=== PATIENT | female | born 1960 | race American Indian/Alaskan Native ===

== ENCOUNTER 2018-01-30 15:09 | Emergency (ER) | payer SELFPAY ==
[2018-01-30 15:51] LABS: Bilirubin,Urine NEG (Negative); Blood,Urine NEG (Negative); Color,Urine Yellow (Yellow); Mucus,Urine FEW /HPF; Protein,Urine <15 mg/dL mg/dL (Negative); RBC,Urine < 1.0 /HPF (0.0-6.0); Urobilinogen,Urine < 2.0 mg/dL (<2.0); WBC,Urine < 1.0 /HPF (0.0-6.0)
[2018-01-30] MEDS ORDERED: TORADOL IM ONE (16:12)
--- NOTE | 2018-01-30 16:12 | Emergency Department Report ---
ED Back Pain/Injury HPI - General Chief Complaint: Back Pain/Injury Stated Complaint: LOW BACK PAIN Time Seen by Provider: 01/30/18 16:11 Source: patient Limitations: No Limitations - History of Present Illness Initial Comments: This is a 57-year-old female nontoxic, well nourished in appearance, no acute signs of distress presents to the ED with c/o of acute on chronic lower back pain. Patient stated that the past 2 days she was moving and lifting water bottles and developed this pain. Patient states that pain radiates through to his left lower extremity. Patient denies any trauma. Denies any bladder or bowel instability. Denies any fever, chills, nausea, vomiting, headache, stiff neck, abdominal pain, chest pain or shortness of breath. Patient denies any numbness or tingling. Patient states allergies to Vicodin and neomycin. Past medical history includes hypertension. MD Complaint: back pain -: days(s) (2) Similar Symptoms Previously: Yes Radiation: left leg Severity: mild Severity scale (0 -10): 8 Quality: aching Consistency: constant Improves With: immobilization, supine, sitting upright Worsens With: movement, walking Context: while lifting, turning/twisting Associated Symptoms: denies other symptoms. denies: confusion, weakness, chest pain, numbness, difficulty walking, cough, difficulty urinating, diaphoresis, incontinence, fever/chills, constipation, headaches, abdominal pain, loss of appetite, malaise, nausea/vomiting, rash, seizure, shortness of breath, syncope - Related Data Previous Rx's Medication Instructions Recorded Last Taken Type Amoxicillin [Amoxicillin TAB] 875 mg PO BID #20 tablet 11/30/16 Unknown Rx Ibuprofen [Motrin 800 MG tab] 800 mg PO Q8HR PRN #30 tablet 11/30/16 Unknown Rx Cyclobenzaprine [Flexeril] 10 mg PO QHS PRN #7 tablet 01/30/18 Unknown Rx Ibuprofen [Motrin] 600 mg PO Q8H PRN #30 tablet 01/30/18 Unknown Rx Allergies Allergy/AdvReac Type Severity Reaction Status Date / Time acetaminophen [From Vicodin] AdvReac Vomiting Verified 11/30/16 15:43 hydrocodone bitartrate AdvReac Vomiting Verified 11/30/16 15:43 [From Vicodin] neomycin [Neomycin] AdvReac Itching Verified 11/30/16 15:43 ED Review of Systems ROS: Stated complaint: LOW BACK PAIN Other details as noted in HPI Constitutional: denies: chills, fever Eyes: denies: eye pain, eye discharge, vision change ENT: denies: ear pain, throat pain Respiratory: denies: cough, shortness of breath, wheezing Cardiovascular: denies: chest pain, palpitations Endocrine: no symptoms reported Gastrointestinal: denies: abdominal pain, nausea, diarrhea Genitourinary: denies: urgency, dysuria, discharge Musculoskeletal: back pain. denies: joint swelling, arthralgia Skin: denies: rash, lesions Neurological: denies: headache, weakness, paresthesias Psychiatric: denies: anxiety, depression Hematological/Lymphatic: denies: easy bleeding, easy bruising ED Past Medical Hx - Past Medical History Hx Hypertension: Yes Additional medical history: hx bladder infections, heavy bleeding w/ cycles, anemia on Ferrous sulfate - Surgical History Hx Breast Surgery: Yes (CYST REMOVED RIGHT BREAST) Additional Surgical History: OVARIAN CYST REMOVED - Social History Smoking Status: Never Smoker Substance Use Type: None - Medications Home Medications: Home Medications Medication Instructions Recorded Confirmed Last Taken Type Amoxicillin [Amoxicillin TAB] 875 mg PO BID #20 tablet 11/30/16 Unknown Rx Ibuprofen [Motrin 800 MG tab] 800 mg PO Q8HR PRN #30 tablet 11/30/16 Unknown Rx Cyclobenzaprine [Flexeril] 10 mg PO QHS PRN #7 tablet 01/30/18 Unknown Rx Ibuprofen [Motrin] 600 mg PO Q8H PRN #30 tablet 01/30/18 Unknown Rx ED Physical Exam - General Limitations: No Limitations General appearance: alert, in no apparent distress - Head Head exam: Present: atraumatic, normocephalic - Eye Eye exam: Present: normal appearance Pupils: Present: normal accommodation - ENT ENT exam: Present: normal exam, mucous membranes moist - Neck Neck exam: Present: normal inspection, full ROM. Absent: tenderness, meningismus, lymphadenopathy - Respiratory Respiratory exam: Present: normal lung sounds bilaterally. Absent: respiratory distress, wheezes, rales, rhonchi, stridor, chest wall tenderness, accessory muscle use, decreased breath sounds, prolonged expiratory - Cardiovascular Cardiovascular Exam: Present: regular rate, normal rhythm, normal heart sounds. Absent: tachycardia, irregular rhythm, systolic murmur, diastolic murmur, rubs , gallop - GI/Abdominal GI/Abdominal exam: Present: soft, normal bowel sounds. Absent: distended, tenderness, guarding, rebound, rigid, diminished bowel sounds, bruit - Rectal Rectal exam: Present: deferred - Extremities Exam Extremities exam: Present: normal inspection, full ROM, normal capillary refill - Back Exam Back exam: Present: normal inspection, full ROM, paraspinal tenderness (left paralumbar region). Absent: tenderness, CVA tenderness (R), CVA tenderness (L) , muscle spasm, vertebral tenderness, rash noted - Expanded Back Exam Expanded Back exam: Absent: saddle anesthesia Back exam: Negative Straight Leg Raising: Left, Right - Neurological Exam Neurological exam: Present: alert, oriented X3, normal gait - Psychiatric Psychiatric exam: Present: normal affect, normal mood - Skin Skin exam: Present: warm, dry, intact, normal color. Absent: rash ED Course Vital Signs 01/30/18 01/30/18 15:14 16:20 Temperature 97.9 F Pulse Rate 58 L Respiratory 16 18 Rate Blood Pressure 143/67 O2 Sat by Pulse 97 Oximetry - Reevaluation(s) Reevaluation #1: 01/30/18 17:50 Patient is speaking in full sentences with no signs of distress noted. ED Medical Decision Making - Medical Decision Making This is a 57-year-old female that presents with low back strain. Patient is stable was examined by me. There is no spinal tenderness. There is no cauda equina syndrome during examination. No bladder or bowel instability. Patient received Toradol 60 mg IM in the ED which preceded his symptoms has resolved and subsided. Patient is discharged with muscle relaxant and Motrin. Patient was instructed not to operate any machinery while taking muscle relaxant as they cause her drowsiness. Patient was referred to Follow-up with a primary care doctor in 3-5 days or if symptoms worsen and continue return to emergency room as soon as possible. At time of discharge, the patient does not seem toxic or ill in appearance. No acute signs of distress noted. Patient agrees to discharge treatment plan of care. No further questions noted by the patient. This chart is dictated with using [employer] Critical care attestation.: If time is entered above; I have spent that time in minutes in the direct care of this critically ill patient, excluding procedure time. ED Disposition Clinical Impression: Low back strain Qualifiers: Encounter type: initial encounter Qualified Code(s): S39.012A - Strain of muscle, fascia and tendon of lower back, initial encounter Disposition: TO HOME OR SELFCARE Is pt being admited?: No Does the pt Need Aspirin: No Condition: Stable Instructions: Low Back Strain (ED), Cyclobenzaprine (By mouth), Ibuprofen (By mouth) Additional Instructions: Follow-up with your primary care doctor in 3-5 days or if symptoms worsen such as bladder or bowel stability, chest pain, short of breath, numbness or tingling sensation in extremities, headache, dizziness, visual changes, nausea vomiting, or abdominal pain, return back to emergency room as was possible. Take ibuprofen and Flexeril as prescribed. Do not operate heavy machinery while taking Flexeril due to sedation Prescriptions: Cyclobenzaprine [Flexeril] 10 mg PO QHS PRN #7 tablet PRN Reason: Muscle Spasm Ibuprofen [Motrin] 600 mg PO Q8H PRN #30 tablet PRN Reason: Pain Referrals: PRIMARY MD LAURYN [Primary Care Provider] - 3-5 Days KENY MESA MD [Staff Physician] - 3-5 Days [facility] [Outside] - 3-5 Days [facility] [Outside] - 3-5 Days Forms: Work/School Release Form(ED)
[2018-01-30 18:24] VITALS: BP 146/68
== END 2018-01-30 18:25 | disposition home or self-care (01) ==
LOC: ED 15:09
DX: S39.012A Strain of muscle, fascia and tendon of lower back, initial encounter (principal); I10 Essential (primary) hypertension; Z88.6 Allergy status to analgesic agent; Z88.1 Allergy status to other antibiotic agents; X58.XXXA Exposure to other specified factors, initial encounter; Y93.89 Activity, other specified; Y92.89 Other specified places as the place of occurrence of the external cause; Y99.8 Other external cause status
CPT/HCPCS: 81001; 96372; 99283; J1885

== ENCOUNTER 2019-11-09 01:56 | Emergency (ER) | payer SELFPAY ==
--- NOTE | 2019-11-09 02:09 | Emergency Department Report ---
Chief Complaint: Nosebleed Stated Complaint: MIGRAINE,COUGHING UP BLOOD - HPI History of Present Illness: The pt is a 59 y/o F p/w a cc of WADE, hemoptysis and epistaxis. Pt denies preceeding trauma. Pt states she takes an aspirin occ but no other blood thinners - Exam Vital Signs: Vital Signs 11/09/19 02:01 Temperature 97.7 F Pulse Rate 71 Respiratory 18 Rate Blood Pressure 157/80 O2 Sat by Pulse 99 Oximetry MSE screening note: Focused history and physical exam performed. Due to findings the following was ordered: cbc, bmp, pt/ptt/inr CT Head cxr ED Disposition for MSE Condition: Stable
[2019-11-09 02:38] LABS: Hematocrit 38.5 % (30.3-42.9); Hemoglobin 13.4 gm/dl (10.1-14.3); Mean Corpuscular HGB Conc 35 % (30-34); Mean Corpuscular Volume 93 fl (79-97); Platelet Count 277 K/mm3 (140-440); Red Blood Count 4.15 M/mm3 (3.65-5.03); Red Cell Distribution Width 13.2 % (13.2-15.2)
--- NOTE | 2019-11-09 02:38 | Cat Scan Report ---
CT HEAD WITHOUT CONTRAST INDICATION : Headache. Nosebleed. TECHNIQUE: Axial, coronal and sagittal CT imaging was performed from the skull apex through the skul l base without contrast. All CT scans at this location are performed using CT dose reduction for ALA RA by means of automated exposure control. COMPARISON: None available. FINDINGS: PARENCHYMA: No mass, midline shift, hemorrhage, extraaxial collection or acute territorial infarctio n. There is mild generalized atrophy. VENTRICLES: Symmetric and normal in size. SOFT TISSUES: No significant abnormality of the included soft tissues/orbits. BONES: No acute osseous abnormality. SINUSES: No significant abnormality. ADDITIONAL FINDINGS: None. IMPRESSION: No acute intracranial abnormality. Signer Name: Roe Diaz MD Signed: 11/09/2019 2:34 AM Workstation Name: [id number]
[2019-11-09 02:47] LABS: INR 0.98 (0.87-1.13)
--- NOTE | 2019-11-09 02:49 | XRay Report ---
CHEST 2 VIEWS INDICATION / CLINICAL INFORMATION: hemoptysis. COMPARISON: None available. FINDINGS: SUPPORT DEVICES: None. HEART / MEDIASTINUM: No significant abnormality. LUNGS / PLEURA: No significant pulmonary or pleural abnormality. No pneumothorax. ADDITIONAL FINDINGS: No significant additional findings. IMPRESSION: 1. No acute abnormality of the chest. Signer Name: Roe Diaz MD Signed: 11/09/2019 2:45 AM Workstation Name: [id number]
[2019-11-09 02:57] LABS: BUN/Creatinine Ratio 15; Blood Urea Nitrogen 12 mg/dL (7-17); Calcium 9.8 mg/dL (8.4-10.2); Hemolysis Index 6
[2019-11-09 03:37] LABS: RBC Morphology Normal; Total Cells Counted 100
[2019-11-09] MEDS ORDERED: ONDANSETRON 4 MG ODT TAB PO ONE (04:28)
[2019-11-09] MEDS ORDERED: BUTALB/ACETAMINOPHEN/CAFFEINE TAB PO ONE (04:28)
--- NOTE | 2019-11-09 04:30 | Emergency Department Report ---
- General Chief Complaint: Nosebleed Stated Complaint: MIGRAINE,COUGHING UP BLOOD Source: patient Mode of arrival: Ambulatory Limitations: No Limitations - History of Present Illness Initial Comments: Patient is a 59-year-old -Filipino female with a history of chronic headaches and sinus infection, hypertension presents to the ED record and of acute onset persistent nasal and sinus congestion, persistent dry cough, frontal sinus pressure and headache for the last 1 week, worse in the last 2 days. Patient also complains of acute onset left-sided epistaxis is present on arrival in the ED which has since resolved. Patient denies dizziness, syncope, chest pain, shortness of breath, fever, chills, sore throat, dizziness, palpitation, neck pain or change in vision. Patient states that she has been taking Fiorinal with codeine for pain at home up to about 3 weeks ago but ran out of the medic ation. Patient states that tonight while at home she was having persistent nasal and sinus congestion and blew her nose and thereafter developed acute onset left-sided epistaxis. MD Complaint: cough, rhinorrhea, nasal congestion, sinus pain, other (nosebleed; frontal sinus pressure and headache) -: Sudden, hour(s) (4), week(s) (3) Severity: moderate Severity scale (0 -10): 4 Quality: dull, aching Consistency: constant, intermittent Improves With: nothing Worsens With: nothing Associated Symptoms: denies other symptoms, headache, rhinorrhea, nasal congestion. denies: fever, myalgias, diaphoresis, stiff neck, cough, chest pain, shortness of breath, abdominal pain, nausea, vomiting, diarrhea, weight loss, epistaxis, hoarseness, ear pain Treatments Prior to Arrival: none - Related Data Previous Rx's Medication Instructions Recorded Last Taken Type Amoxicillin [Amoxicillin TAB] 875 mg PO BID #20 tablet 11/30/16 Unknown Rx Ibuprofen [Motrin 800 MG tab] 800 mg PO Q8HR PRN #30 tablet 11/30/16 Unknown Rx Cyclobenzaprine [Flexeril] 10 mg PO QHS PRN #7 tablet 01/30/18 Unknown Rx Ibuprofen [Motrin] 600 mg PO Q8H PRN #30 tablet 01/30/18 Unknown Rx Amoxicillin/Potassium Clav 1 each PO Q12H #20 tablet 11/09/19 Unknown Rx [Augmentin 875-125 Tablet] Codeine/Butalbital/ASA/Caffein 1 - 2 each PO Q6H PRN #15 capsule 11/09/19 Unknown Rx [Fiorinal with Codeine #3 Cap] Ondansetron [Zofran Odt] 4 mg PO Q6HR PRN #12 tab.rapdis 11/09/19 Unknown Rx Allergies Allergy/AdvReac Type Severity Reaction Status Date / Time acetaminophen [From Vicodin] AdvReac Vomiting Verified 11/30/16 15:43 hydrocodone bitartrate AdvReac Vomiting Verified 11/30/16 15:43 [From Vicodin] neomycin [Neomycin] AdvReac Itching Verified 11/30/16 15:43 ED Review of Systems ROS: Stated complaint: MIGRAINE,COUGHING UP BLOOD Other details as noted in HPI Comment: All other systems reviewed and negative Constitutional: denies: chills, fever Eyes: denies: eye pain, eye discharge, vision change ENT: epistaxis (resolved), congestion, other (frontal sinus pressure and headache). denies: ear pain, throat pain Respiratory: cough. denies: shortness of breath, wheezing Cardiovascular: denies: chest pain, palpitations, paroxysmal nocturnal dyspnea Endocrine: no symptoms reported Gastrointestinal: denies: abdominal pain, nausea, diarrhea Genitourinary: denies: urgency, dysuria, discharge Musculoskeletal: denies: back pain, joint swelling, arthralgia Skin: denies: rash, lesions Neurological: headache (frontal ). denies: weakness, paresthesias Psychiatric: denies: anxiety, depression Hematological/Lymphatic: denies: easy bleeding, easy bruising ED Past Medical Hx - Past Medical History Previous Medical History?: Yes Hx Hypertension: Yes Additional medical history: hx bladder infections, heavy bleeding w/ cycles, anemia on Ferrous sulfate - Surgical History Past Surgical History?: Yes Hx Breast Surgery: Yes (CYST REMOVED RIGHT BREAST) Additional Surgical History: OVARIAN CYST REMOVED - Social History Smoking Status: Never Smoker Substance Use Type: Alcohol - Medications Home Medications: Home Medications Medication Instructions Recorded Confirmed Last Taken Type Amoxicillin [Amoxicillin TAB] 875 mg PO BID #20 tablet 11/30/16 Unknown Rx Ibuprofen [Motrin 800 MG tab] 800 mg PO Q8HR PRN #30 tablet 11/30/16 Unknown Rx Cyclobenzaprine [Flexeril] 10 mg PO QHS PRN #7 tablet 01/30/18 Unknown Rx Ibuprofen [Motrin] 600 mg PO Q8H PRN #30 tablet 01/30/18 Unknown Rx Amoxicillin/Potassium Clav 1 each PO Q12H #20 tablet 11/09/19 Unknown Rx [Augmentin 875-125 Tablet] Codeine/Butalbital/ASA/Caffein 1 - 2 each PO Q6H PRN #15 capsule 11/09/19 Unknown Rx [Fiorinal with Codeine #3 Cap] Ondansetron [Zofran Odt] 4 mg PO Q6HR PRN #12 tab.rapdis 11/09/19 Unknown Rx ED Physical Exam - General Limitations: No Limitations General appearance: alert, in no apparent distress - Head Head exam: Present: atraumatic, normocephalic, normal inspection - Eye Eye exam: Present: normal appearance, PERRL, EOMI Pupils: Present: normal accommodation - ENT ENT exam: Present: normal orophraynx, mucous membranes moist, TM's normal bilaterally, normal external ear exam, other (grossly congested nasal passages; palpable frontal sinus tenderness; epistaxis resolved) - Neck Neck exam: Present: normal inspection, full ROM - Respiratory Respiratory exam: Present: normal lung sounds bilaterally. Absent: respiratory distress, wheezes, rales, rhonchi, stridor, chest wall tenderness, accessory muscle use, decreased breath sounds, prolonged expiratory - Cardiovascular Cardiovascular Exam: Present: regular rate, normal rhythm, normal heart sounds. Absent: systolic murmur, diastolic murmur, rubs, gallop - GI/Abdominal GI/Abdominal exam: Present: soft, normal bowel sounds. Absent: distended, tenderness, guarding, rebound, hyperactive bowel sounds, hypoactive bowel sounds, organomegaly, mass - Extremities Exam Extremities exam: Present: normal inspection, full ROM, normal capillary refill - Back Exam Back exam: Present: normal inspection, full ROM. Absent: tenderness, muscle spasm, paraspinal tenderness, vertebral tenderness - Neurological Exam Neurological exam: Present: alert, oriented X3, CN II-XII intact, normal gait, reflexes normal - Psychiatric Psychiatric exam: Present: normal affect, normal mood - Skin Skin exam: Present: warm, dry, intact, normal color. Absent: rash ED Course Vital Signs 11/09/19 02:01 Temperature 97.7 F Pulse Rate 71 Respiratory 18 Rate Blood Pressure 157/80 O2 Sat by Pulse 99 Oximetry ED Medical Decision Making - Lab Data Result diagrams: 11/09/19 02:09 11/09/19 02:09 - Medical Decision Making This is a 59-year-old female with a history of persistent chronic sinus headache, nasal and sinus congestion, hypertension who presented to the ED with complaint of acute onset persistent nasal and sinus congestion, severe frontal sinus pressure and headache for the last 1 week, and acute onset left-sided epistaxis 2 hours prior to arrival in the ED and recheck since resolved. In the ED, the patient is alert and oriented 3 and is not in distress resting comfortably in the bed with stable vital signs. The epistaxis has since resolved. Patient was treated for headache with Fioricet and discharged home on prescriptions of Fiorinal with codeine and antibody sinus infection. Patient was advised to follow-up with her primary care physician in 5-7 days for reevaluation or return to the ED immediately if symptoms get worse. - Differential Diagnosis sinusitis; sinus headache; URI; Critical care attestation.: If time is entered above; I have spent that time in minutes in the direct care of this critically ill patient, excluding procedure time. ED Disposition Clinical Impression: Chronic frontal sinusitis, Acute upper respiratory infection, Sinus headache, Epistaxis Disposition: - TO HOME OR SELFCARE Is pt being admited?: No Does the pt Need Aspirin: No Condition: Stable Instructions: Acute Bacterial Rhinosinusitis (ED), Tension Headache (ED), Upper Respiratory Infection (ED), Epistaxis (ED) Additional Instructions: Take medications with food, drink plenty of fluids and follow-up with your primary care physician in 5-7 days for reevaluation. Return to the ED immediately if symptoms get worse. Prescriptions: Amoxicillin/Potassium Clav [Augmentin 875-125 Tablet] 1 each PO Q12H #20 tablet Codeine/Butalbital/ASA/Caffein [Fiorinal with Codeine #3 Cap] 1 - 2 each PO Q6H PRN #15 capsule PRN Reason: Headache Ondansetron [Zofran Odt] 4 mg PO Q6HR PRN #12 tab.rapdis PRN Reason: Nausea Referrals: DAVION CARRINGTON MD [Primary Care Provider] - 7-10 days Time of Disposition: 04:32 Print Language: AMHARIC
[2019-11-09 05:14] VITALS: BP 139/75
== END 2019-11-09 05:16 | disposition home or self-care (01) ==
LOC: ED 01:56
DX: J32.1 Chronic frontal sinusitis (principal); J06.9 Acute upper respiratory infection, unspecified; R04.0 Epistaxis; I10 Essential (primary) hypertension; Z98.890 Other specified postprocedural states; Z79.899 Other long term (current) drug therapy; Z88.6 Allergy status to analgesic agent; Z88.1 Allergy status to other antibiotic agents
CPT/HCPCS: 36415; 70450; 71046; 80048; 85007; 85025; 85610; 85730; Q0162

== ENCOUNTER 2021-03-30 15:45 | Emergency (ER) | payer SELFPAY ==
[2021-03-30 16:17] VITALS: BP 141/71
--- NOTE | 2021-03-30 22:12 | XRay Report ---
Bilateral hips-3 total views INDICATION: pain s/p fall. COMPARISON: None. IMPRESSION: No acute osseous abnormality. Soft tissues are normal. Normal alignment. No significa nt DJD. Signer Name: Bill Henriquez MD Signed: 03/30/2021 10:08 PM Workstation Name: [id number]
[2021-03-30] MEDS ORDERED: KETOROLAC 30 MG/1 ML INJ IM ONE (22:20)
--- NOTE | 2021-03-30 22:20 | Emergency Department Report ---
ED General Adult HPI - General Chief complaint: Extremity Injury, Lower Stated complaint: PAIN IN HIP AND GROIN PUI?: No Time Seen by Provider: 03/30/21 22:01 Source: patient Mode of arrival: Ambulatory Limitations: No Limitations - History of Present Illness Initial comments: This is a 60-year-old female with a history of hypertension who presents to the ED complaining of left knee pain status post twisting injury yesterday while she was at home. Patient states she was ready on the floor trying to get up and she somehow twisted her left hip causing pain to the left hip. Patient states she has had pain in the left hip since yesterday. She denies any traumatic injury to the hip. She denies problems urinating or difficulty walking. Patient also noted that she feels like her eyes are irritated. She denies any foreign object in her eye. She denies loss of vision or visual changes or blurry vision. Location: buttocks, left Radiation: non-radiation Severity scale (0 -10): 10 Quality: aching - Related Data Previous Rx's Medication Instructions Recorded Last Taken Type Amoxicillin [Amoxicillin TAB] 875 mg PO BID #20 tablet 11/30/16 Unknown Rx Ibuprofen [Motrin 800 MG tab] 800 mg PO Q8HR PRN #30 tablet 11/30/16 Unknown Rx Cyclobenzaprine [Flexeril] 10 mg PO QHS PRN #7 tablet 01/30/18 Unknown Rx Ibuprofen [Motrin] 600 mg PO Q8H PRN #30 tablet 01/30/18 Unknown Rx Amoxicillin/Potassium Clav 1 each PO Q12H #20 tablet 11/09/19 Unknown Rx [Augmentin 875-125 Tablet] Codeine/Butalbital/ASA/Caffein 1 - 2 each PO Q6H PRN #15 capsule 11/09/19 Unknown Rx [Fiorinal with Codeine #3 Cap] Ondansetron [Zofran Odt] 4 mg PO Q6HR PRN #12 tab.rapdis 11/09/19 Unknown Rx Azithromycin [Zithromax Z-KONRAD] 250 mg PO DAILY #1 pack 06/21/20 Unknown Rx Benzonatate [Tessalon Perles] 100 mg PO Q8HR #12 capsule 06/21/20 Unknown Rx Butalb/Acetaminophen/Caffeine 1 cap PO Q6HR PRN #12 cap 06/21/20 Unknown Rx [Fioricet 50-300-40 mg CAP] Diclofenac Sodium 50 mg PO BID #30 tablet. 03/30/21 Unknown Rx Ketotifen Fumarate [Zaditor] 1 - 2 drops OP BID #5 ml 03/31/21 Unknown Rx Allergies Allergy/AdvReac Type Severity Reaction Status Date / Time acetaminophen [From Vicodin] AdvReac Vomiting Verified 11/30/16 15:43 hydrocodone bitartrate AdvReac Vomiting Verified 03/30/21 16:13 [From Vicodin] neomycin [Neomycin] AdvReac Itching Verified 03/30/21 16:13 ED Review of Systems ROS: Stated complaint: PAIN IN HIP AND GROIN Other details as noted in HPI Comment: All other systems reviewed and negative ED Past Medical Hx - Past Medical History Hx Hypertension: Yes Additional medical history: hx bladder infections, heavy bleeding w/ cycles, anemia on Ferrous sulfate - Surgical History Hx Breast Surgery: Yes (CYST REMOVED RIGHT BREAST) Additional Surgical History: OVARIAN CYST REMOVED - Social History Smoking Status: Never Smoker Substance Use Type: None - Medications Home Medications: Home Medications Medication Instructions Recorded Confirmed Last Taken Type Amoxicillin [Amoxicillin TAB] 875 mg PO BID #20 tablet 11/30/16 Unknown Rx Ibuprofen [Motrin 800 MG tab] 800 mg PO Q8HR PRN #30 tablet 11/30/16 Unknown Rx Cyclobenzaprine [Flexeril] 10 mg PO QHS PRN #7 tablet 01/30/18 Unknown Rx Ibuprofen [Motrin] 600 mg PO Q8H PRN #30 tablet 01/30/18 Unknown Rx Amoxicillin/Potassium Clav 1 each PO Q12H #20 tablet 11/09/19 Unknown Rx [Augmentin 875-125 Tablet] Codeine/Butalbital/ASA/Caffein 1 - 2 each PO Q6H PRN #15 capsule 11/09/19 Unknown Rx [Fiorinal with Codeine #3 Cap] Ondansetron [Zofran Odt] 4 mg PO Q6HR PRN #12 tab.rapdis 11/09/19 Unknown Rx Azithromycin [Zithromax Z-KONRAD] 250 mg PO DAILY #1 pack 06/21/20 Unknown Rx Benzonatate [Tessalon Perles] 100 mg PO Q8HR #12 capsule 06/21/20 Unknown Rx Butalb/Acetaminophen/Caffeine 1 cap PO Q6HR PRN #12 cap 06/21/20 Unknown Rx [Fioricet 50-300-40 mg CAP] Diclofenac Sodium 50 mg PO BID #30 tablet. 03/30/21 Unknown Rx Ketotifen Fumarate [Zaditor] 1 - 2 drops OP BID #5 ml 03/31/21 Unknown Rx ED Physical Exam - General Limitations: No Limitations General appearance: alert, in no apparent distress - Head Head exam: Present: atraumatic, normocephalic - Eye Eye exam: Present: normal appearance, PERRL. Absent: conjunctival injection, periorbital swelling, periorbital tenderness Pupils: Present: normal accommodation - ENT ENT exam: Present: mucous membranes moist - Neck Neck exam: Present: normal inspection, full ROM. Absent: tenderness - Respiratory Respiratory exam: Present: normal lung sounds bilaterally. Absent: respiratory distress - Cardiovascular Cardiovascular Exam: Present: regular rate, normal rhythm. Absent: systolic murmur, diastolic murmur, rubs, gallop - GI/Abdominal GI/Abdominal exam: Present: soft, normal bowel sounds - Extremities Exam Extremities exam: Present: normal inspection, full ROM. Absent: tenderness - Expanded Lower Extremity Exam Left Hip exam: Present: full ROM, tenderness, pelvic stability. Absent: swelling, abrasion, laceration, deformity, erythema, external rotation, internal rotation Upper Leg exam: Present: normal inspection, full ROM Knee exam: Present: normal inspection, full ROM. Absent: tenderness Lower Leg exam: Present: normal inspection, full ROM. Absent: tenderness Ankle exam: Present: normal inspection. Absent: full ROM Foot/Toe exam: Present: normal inspection. Absent: full ROM Neuro vascular tendon exam: Present: no vascular compromise - Back Exam Back exam: Present: normal inspection, full ROM. Absent: tenderness - Neurological Exam Neurological exam: Present: alert, oriented X3, CN II-XII intact, normal gait, reflexes normal - Psychiatric Psychiatric exam: Present: normal affect, normal mood - Skin Skin exam: Present: warm, dry, intact, normal color. Absent: rash ED Course Vital Signs 03/30/21 16:15 Temperature 98.7 F Pulse Rate 64 Respiratory 20 Rate Blood Pressure 141/71 [Right] O2 Sat by Pulse 99 Oximetry ED Medical Decision Making - Radiology Data Radiology results: report reviewed, image reviewed Bilateral hips-3 total views INDICATION: pain s/p fall. COMPARISON: None. IMPRESSION: No acute osseous abnormality. Soft tissues are normal. Normal alignment. No significant DJD. Signer Name: Bill Henriquez MD Signed: 03/30/2021 10:08 PM Workstation Name: [id number] Transcribed By: JEAN Dictated By: Bill Henriquez MD Electronically Authenticated By: Bill Henriquez MD Signed Date/Time: 03/30/212207 - Medical Decision Making This 60-year-old female who presented with hip pain. X-ray shows no acute findings. Discussed findings with the patient. Discussed follow-up with pediatric primary care physician. Discussed Epson salt soaks to help with muscle strain. Patient is in no acute distress patient is ambulatory without any problems. Critical care attestation.: If time is entered above; I have spent that time in minutes in the direct care of this critically ill patient, excluding procedure time. ED Disposition Clinical Impression: Myalgia, Hip pain, left Disposition: DC- TO HOME OR SELFCARE Is pt being admited?: No Does the pt Need Aspirin: No Condition: Stable Instructions: Hip Pain, How to Use Cold Therapy, [id number], Musculoskeletal Pain Additional Instructions: Make sure to follow up with the primary care physician as discussed. Take all your medications as you've been prescribed. If you have any worsening symptoms or develop new symptoms please return to ED immediately. Prescriptions: Diclofenac Sodium 50 mg PO BID #30 tablet. Ketotifberta Fumarate [Zaditor] 1 - 2 drops OP BID #5 ml Referrals: ELLIE CURRY MD [Primary Care Provider] - 3-5 Days [facility] [place] [Outside] - 3-5 Days [facility] [Outside] - 3-5 Days Forms: Work/School Release Form(ED) Time of Disposition: 23:39
== END 2021-03-31 00:30 | disposition home or self-care (01) ==
LOC: ED 15:45
DX: M79.18 Myalgia, other site (principal); M25.552 Pain in left hip; M25.562 Pain in left knee; I10 Essential (primary) hypertension; Z98.890 Other specified postprocedural states; Z88.5 Allergy status to narcotic agent; Z88.1 Allergy status to other antibiotic agents; Z88.8 Allergy status to other drugs, medicaments and biological substances; Z79.899 Other long term (current) drug therapy
CPT/HCPCS: 73521; 96372; 99283; J1885